=== PATIENT | female | born 1970 | race Caucasian/White ===

== ENCOUNTER 2017-03-02 12:54 | Emergency (ER) | payer SELFPAY ==
[~2017-03-02] VITALS: Ht 170.2 cm; Wt 78.2 kg
[2017-03-02 13:06] VITALS: BP 122/82; PULSE 82; RESP 15; O2SAT 95
--- NOTE | 2017-03-02 13:28 | ED.REPORT ---
HPI-Extremity Problem Lower Date of Service Mar 02, 2017 ED Provider: Navjot Spear MD The patient is an otherwise healthy 46 year old female who presents to the emergency department complaining of left ankle/foot pain that began 2 weeks ago. The pain began after she jumped off a chair and "felt something give." Her pain has not improved since onset. She is still able to walk but this causes increased pain. She denies any other injuries or traumas. Nursing Notes Stated Complaint: LEFT ANKLY/FOOT INJURY Chief Complaint: Extremity Trauma Nursing Notes Reviewed: Yes Allergies: Coded Allergies: codeine (Verified Allergy, Intermediate, Hives, 03/02/17) hydrocodone (Verified Allergy, Intermediate, Nausea,Vomiting, 03/02/17) General Time Seen by MD: 13:26 Chief Complaint Ankle injury left, Foot injury left Hx Obtained From: Patient Arrived By: Walk-in Onset Occurred: More than a week ago... Symptom Duration: Since onset Location: : Ankle left: Foot left Quality: Painful Severity: Current: Moderate Severity: Maximum: Severe Pertinent Negative: Pt denies other symptoms Exacerbated by: Range of motion, Movement Relieved by: Immobilization, Rest Recent Healthcare: No recent doctor visit, No recent hospitalization Similar Sx Previous: No Review of Systems Musculoskeletal: Reports: Joint pain, Joint swelling Complete sys rev & neg: except as marked. Physical Exam Initial Vital Signs Vital Signs (First) Date Time Temp Pulse Resp B/P Pulse Ox O2 Delivery O2 Flow Rate FiO2 03/02/17 13:06 36.9 82 15 122/82 95 Room Air Initial VS: Reviewed Head / Eyes: Atraumatic, Normocephalic, PERRL ENT: Mucous membranes moist, Conjunctiva normal, No scleral icterus Neck: Supple, Non-tender, Full range of motion Respiratory: No respiratory distress Lymphatic: No lymphadenopathy Upper Extremities: Vascular intact, Neuro intact, No swelling, No tenderness Skin: Warm, Dry, No cyanosis Neurologic: Alert, Oriented, Nonfocal Psychiatric: Mood/affect normal, Behavior normal, Normal thought content Lower Extremity / Pelvis / MS: Neurologic intact, Vascular intact Ankle / Foot: Neurologic intact, Vascular intact Tenderness inferior to the medial malleolus on the left. General/Constitutional: Awake, Alert, Cooperative Interpretation & Diagnostics X-Ray Interpretation Xray Interpretation: IMPRESSION: 1. No acute fracture of the left ankle. 2. Questionable small ankle effusion and overlying soft tissue edema. If there is clinical for internal derangement, please consider an MRI of the ankle for further evaluation. Dictated by: Rishabh Blanca M.D. on 03/02/2017 at 12:47 X-Ray Ordered: Ankle left Interpretation / Wet Read by: Interpret - Radiologist Re-Eval/Medical Decision Med Decision/Clinical Course Left ankle sprain. No fracture. Weightbearing as tolerated. Rice. Follow-up with primary doctor. Given walking boot per patient request. Source of Hx: Old records Re-Evaluation/Progress : Time of Eval: 14:01 Re-Evaluation/Progress Note: Discussed results, diagnosis, and plan for discharge. All questions were addressed. Counseled Regarding: Diagnosis, Need for follow-up, When/why to return to ED Discharge & Departure Impression: Primary Impression: Ankle sprain Encounter type: initial encounter Involved ligament of ankle: unspecified ligament Laterality: left Qualified Code: S93.402A - Sprain of unspecified ligament of left ankle, initial encounter Disposition: Home Discharge Condition All VS Reviewed: Yes Condition: Stable Patient Instructions: Ankle Sprain (GEN) Additional Instructions: Thank you for entrusting us with your care today. There is no evidence of any acute fractures. Wear the boot as needed for your pain. It is important that you limit weight bearing. It is okay to ride a road bike or stationary bike. Make sure to rest, ice, compress, and elevate your left ankle. If your pain continues you should followup with your regular doctor in 1 week. Use Tylenol as needed for your pain. Seek care for any new or concerning symptoms. Scribe Attestation Portions of this note were transcribed by Kristal Dudley. I, Dr. Spear personally performed the history, physical exam and medical decision-making; I reviewed and confirmed the accuracy of the information in the transcribed note. Signed by: Danae Valentino, 03/02/2017 at 1415. Navjot Spear MD Mar 02, 2017 13:28 Kristal Dudley Mar 02, 2017 13:33
--- NOTE | 2017-03-02 13:53 | DRSVH ---
PROCEDURE: X-RAY LEFT ANKLE, MINIMUM THREE VIEWS ([id number]) INDICATIONS: left ankle pain TECHNIQUE: 3 views of the ankle were acquired. COMPARISON: None. FINDINGS: Bones: No fractures or dislocations. Ankle mortise is normally aligned. No suspicious bony lesions . There is a moderate-sized plantar calcaneal spur and a small enthesophyte at the distal aspect of the Achilles tendon insertion. Soft tissues: There may be a small tibiotalar joint effusion. Minimal edema overlying the ankle is p resent. IMPRESSION: 1. No acute fracture of the left ankle. 2. Questionable small ankle effusion and overlying soft tissue edema. If there is clinical for inte rnal derangement, please consider an MRI of the ankle for further evaluation. Dictated by: Rishabh Blanca M.D. on 03/02/2017 at 12:47 Approved by: Rishabh Blanca M.D. on 03/02/2017 at 12:52
== END 2017-03-02 14:17 | disposition home or self-care (01) ==
LOC: SED 12:54
DX: S93.402A Sprain of unspecified ligament of left ankle, initial encounter (principal); X58.XXXA Exposure to other specified factors, initial encounter; Y93.39 Activity, other involving climbing, rappelling and jumping off; Y92.89 Other specified places as the place of occurrence of the external cause; Y99.8 Other external cause status; Z88.5 Allergy status to narcotic agent

== ENCOUNTER 2017-03-21 06:11 | Emergency (ER) | payer SELFPAY ==
--- NOTE | 2017-03-21 06:14 | ED.REPORT ---
HPI-Facial Injury Date of Service Mar 21, 2017 ED Provider: Hamilton Butler MD 46 year old female presents to the ER accompanied by her complaining of left jaw pain onset upon awakening yesterday. She states that symptoms onset with a painful "lump" behind her left mandible that has progressively worsened in severity. Associated symptoms include difficulty swallowing, and productive cough with yellow sputum. Patient denies fever, dental pain, nausea, vomiting, difficulty breathing, oral drainage, and history of similar. Nursing Notes Stated Complaint: INFECTION/JAW PAIN Nursing Notes Reviewed: Yes ([employer], [employer] not reconciled) Allergies: Coded Allergies: codeine (Verified Allergy, Intermediate, Hives, 03/02/17) hydrocodone (Verified Allergy, Intermediate, Nausea,Vomiting, 03/02/17) Scheduled Clindamycin (Clindamycin) 300 Mg Capsule 300 MG PO QID Scheduled PRN Ondansetron ODT (Ondansetron ODT) 8 Mg Tab.rapdis 8 MG PO Q4H PRN PRN For Nausea oxyCODONE-Acetaminophen 5-325 mg (oxyCODONE-Acetaminophen 5-325 mg) 1 Each Tablet 1-2 TAB PO Q6H PRN PRN For Pain General Time Seen by Provider: 06:13 Chief Complaint Other (Left Jaw Pain) Hx Obtained From: Patient Arrived By: Walk-in Onset Occurred: Yesterday Symptom Duration: Since onset Location: : Mandible left Quality: Painful Severity: Current: Moderate Severity: Maximum: Moderate Associated with: Denies: Shortness of breath Pertinent Negative: Pt denies other symptoms Similar Sx Previous: No Past Medical History Past Medical History Denies Past Surgical History Foreign body removed from duodenum Reports: Hysterectomy Smoking History Unknown if Ever Smoker Social History Drug Use: THC (occasional) Other Social History: Good social support, Ambulatory Status Independent Review of Systems Review of Systems Note: +Jaw Pain +Difficulty Swallowing Constitutional: Denies: Chills, Fever Ears / Nose / Throat: Denies: Mouth pain, Throat swelling, Toothache Complete sys rev & neg: except as marked. Respiratory: Reports: Prod cough, yellow, Denies: Shortness of breath Cardiovascular: Denies: Chest pain GI: Denies: Abdominal pain, Constipation, Diarrhea, Nausea, Vomiting Physical Exam Initial Vital Signs Vital Signs (First) Date Time Temp Pulse Resp B/P Pulse Ox O2 Delivery O2 Flow Rate FiO2 03/21/17 06:15 36.3 81 16 124/81 99 Room Air Initial VS: Reviewed, Unavailable (none on chart, ordered) Respiratory: Breath sounds normal, Clear to auscultation, No respiratory distress Cardiovascular: Regular rate & rhythm, Heart sounds normal, Intact distal pulses Extremities: Vascular intact, Neuro intact, No swelling, No tenderness Skin: Warm, Dry, No cyanosis Psychiatric: Mood/affect normal, Behavior normal, Normal thought content Head / Eyes: Atraumatic, Normocephalic ENT: Airway patent, Mucous membranes moist, Pharynx NL, Tympanic membs NL, Ext aud canal NL, Gums/dentition NL Swelling along the left jaw line and submandibular space, tender. Left lower tooth missing, no fluctuance. Airway patent. No Trisha's duct blood, or drainage. Neck: Atraumatic, Supple, Full range of motion, No swelling, Non-tender, No midline vertebral tend, No masses Neurologic: Oriented X3, Speech NL, No motor deficits, No sensory deficits General/Constitutional: Awake, Alert, Well appearing, Well developed, Well nourished Interpretation & Diagnostics Lab Results Interpretation Result Diagram: 03/21/17 0712 03/21/17 0712 Test 03/21/17 07:12 White Blood Count 12.7th/mm3 (3.8-10.1) Red Blood Count 4.43mil/mm3 (3.90-5.20) Hemoglobin 13.6g/dL (12.0-15.6) Hematocrit 40.9% (35.0-46.0) Mean Corpuscular Volume 92.3fL (81-100) Mean Corpuscular Hemoglobin 30.7pg (27.0-35.0) Mean Corpuscular Hemoglobin Concent 33.3% (32.0-37.0) Red Cell Distribution Width 13.7% (12.3-15.4) Platelet Count 306bil/L (150-400) Neutrophils (%) (Auto) 68.6% (40-74) Lymphocytes (%) (Auto) 17.7% (14-46) Monocytes (%) (Auto) 11.2% (4-12) Eosinophils (%) (Auto) 1.6% (0-5) Basophils (%) (Auto) 0.5% (0-3) Sodium Level 139mEq/L (134-144) Potassium Level 4.3mEq/L (3.5-5.2) Chloride Level 104mEq/L (97-108) Carbon Dioxide Level 19mmol/L (18-29) Blood Urea Nitrogen 14mg/dL (6-24) Creatinine 0.66mg/dL (0.57-1.00) Estimat Glomerular Filtration Rate 137mL/min (>59) Glucose Level 105mg/dL (60-99) Calcium Level 9.0mg/dL (8.5-10.1) Total Bilirubin 0.3mg/dL (0.0-1.2) Aspartate Amino Transf (AST/SGOT) 22U/L (0-50) Alanine Aminotransferase (ALT/SGPT) 19U/L (0-32) Alkaline Phosphatase 68U/L (25-150) Total Protein 6.6g/dL (6.4-8.4) Albumin 4.0g/dL (3.4-5.0) Re-Eval/Medical Decision Med Decision/Clinical Course This is a pleasant 46-year-old female presents complaining of swelling along the left jaw line started yesterday, worsened last evening to the point she was having pain and not sleeping well, so came to the ED. She denies dental pain, she denies fever, she denies in the mouth, she denies recent infection. She has no prior history of salivary glands or parotid gland stones. He has no additional complaints. Exam however she does have swelling along the left jawline leave the submandibular gland on the left, I do not appreciatate parotid gland involvement per se, nor the preauricular nodes evident, there is no blood or purulence expressible from the Stensen's or sublingual ducts. It is one tooth has been removed, but there is no fluctuance or areas make a strong suspicion for a clear odontogenic source. The patient has a normal voice, no evidence of airway, minus, no clinical findings of blood weeks' are evident. In the respiratory exam is normal. The differential suggests lymphadenitis, although sialoadenitis is in the list, plan and guarding the pain and swelling was to empirically treat and obtain CT imaging, but the patient believes she has had a very unusual reaction IV contrast with 2 days of nausea and passed-she did not have any itching redness flesh and his angioedema or other classic symptoms of a reaction and it occurred while she is having GI problems, so to the description she gives me it does not sound like a true contrast allergy but she is worried about getting contrast. So reviewed and discussed options, and plan is empiric treatment with antibiotics medication with close follow-up if not responding or worsening. Patient received IV clindamycin, dose of dexamethasone, pain medicine and is improved on reexamination. His been observed demonstrate no airway compromise, so I think that empiric treatment is reasonable. The plan is lemon drops to take treat the possibility of a salivary stone, a second dose of dexamethasone 10 mg tomorrow, oral clindamycin, and pain medication. Routine return precautions reviewed. Patient is discharged in improved condition. Source of Hx: Old records Re-Evaluation/Progress #1: Time of Eval: 07:20 Re-Evaluation/Progress Note: Pain has improved with medications. Patient is resting comfortably. Re-Evaluation/Progress #2: Time of Eval: 08:02 Re-Evaluation/Progress Note: Patient refuses CT. She states that she had an adverse reaction to contrast with prior CT. Discussed plan to discharge. Patient is amenable to the plan. Return precautions given. All other questions addressed. Differential Diagnosis: Negative: Abrasion, Animal bite, Basilar skull fracture , Epistaxis, posterior, Eyelid injury, Facial fracture, Foreign body, Gun shot wound, Laceration, Mandible fracture Counseled Regarding: Diagnosis, Lab results, Need for follow-up, When/why to return to ED Discharge & Departure Impression: Primary Impression: Submandibular lymphadenitis Disposition: Home Discharge Condition All VS Reviewed: Yes Condition: Stable Referrals: NOPCP (PCP) Danae Attestation Portions of this note were transcribed by Stevo Severino. I, Dr. Butler, personally performed the history, physical exam and medical decision-making; I reviewed and confirmed the accuracy of the information in the transcribed note. Signed by: Danae Mead, 03/21/2017 and *time*. Hamilton Butler MD Mar 21, 2017 06:14 STEVO SEVERINO Mar 21, 2017 06:26
[2017-03-21 06:15] VITALS: BP 124/81; PULSE 81; RESP 16; O2SAT 99
[2017-03-21] MEDS ORDERED: Ketorolac 15 mg/mL Inj IVPUSH ONE (06:30)
[2017-03-21] MEDS ORDERED: Clindamycin Inj 900 MG in IV Premix 1 EACH IV ONE (06:30)
[2017-03-21] MEDS ORDERED: HYDROmorphone 0.5 mg/0.5 mL iSecure Syringe IVPUSH PRN (06:30)
[2017-03-21] MEDS ORDERED: Dexamethasone Inj 10 MG in 0.9% Sodium Chloride-Pha MIX 50 ML IV ONE (06:30)
[2017-03-21] MEDS ORDERED: Ondansetron 2 mg/mL 2 mL Inj IVPUSH ONE ×2 (06:30→07:40)
[2017-03-21 07:30] LABS: BASOPHILS % (AUTO) 0.5 % (0-3); EOSINOPHILS % (AUTO) 1.6 % (0-5); MONOCYTES % (AUTO) 11.2 % (4-12); Mean Corpuscular Hemoglobin 30.7 pg (27.0-35.0); Mean Corpuscular Volume 92.3 fL (81-100); NEUTROPHILS % (AUTO) 68.6 % (40-74); Platelet Count 306 bil/L (150-400)
[2017-03-21] MEDS ORDERED: OXYC1TAB24 PO (08:11)
[2017-03-21] MEDS ORDERED: CLIN-78 PO (08:11)
[2017-03-21] MEDS ORDERED: ONDA8TAB10 PO (08:11)
[2017-03-21] MEDS ORDERED: Dexamethasone 20 mg/2 mL Oral Solution PO ONE (08:15)
[2017-03-21 08:24] VITALS: BP 118/74; PULSE 74; O2SAT 97
== END 2017-03-21 08:21 | disposition home or self-care (01) ==
LOC: SED 06:11
DX: L04.0 Acute lymphadenitis of face, head and neck (principal); Z88.5 Allergy status to narcotic agent
CPT/HCPCS: 36415; 80053; 85025; 96365; 96375; 99285; J1100; J1170; J1885